=== PATIENT | female | born 1950 | race Caucasian/White ===

== ENCOUNTER 2017-06-07 09:23 | Day surgery (SDC) | payer MEDICARE ==
--- NOTE | 2017-06-07 11:25 | Operative Note ---
Upper GI Endoscopy Procedure date: 06/07/17 Date of : 46 Procedure:Upper GI Endoscopy Esophagogastroduodenoscopy with cold biopsies Indications: Mrs. 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 She has been on Reglan for more than 15 years. She also has been on Prevacid and Tagamet. All of this helped to control her gastroesophageal reflux disease. The patient has had no significant dyspepsia as long as she stays with this and reports no indigestion, heartburn or dyspepsia. She reports no dysphagia. Performing Provider: Mark Radford MD Referring Provider: Wil Camp M.D. Sedation: Fentanyl 100 mg IV/Versed 4 mg IV Procedure: Prior to the procedure, a history and physical exam was performed, and patients medications and allergies were reviewed. The risks and benefits of the procedure and the sedation options and risks were discussed with the patient. All questions were answered and informed consent was obtained. The patient was brought to the procedure room. Patient identification and proposed procedure were verified by the physician and the nurse. The patient was placed in a left lateral decubitus position and the scope was passed under direct vision. Throughout the procedure, the patient's blood pressure, pulse, and oxygen saturations were monitored continuously. The endoscope was introduced through the mouth, and advanced to the second part of duodenum. The upper GI endoscopy was accomplished without difficulty. The patient tolerated the procedure well. Findings: The scope was passed directly into the upper esophagus and advanced to the third portion of the duodenum. The post bulbar duodenum and duodenal bulb were normal with normal mucosa and conniventes. The scope was withdrawn through a normal duodenal bulb and pylorus into the stomach. There was bile reflux with some linear erythema of the antrum and body consistent with mild linear reactive gastritis. The remainder of the antrum, body and fundus of the stomach were grossly normal. Upon retroflexion there was a small 2 cm hiatal hernia. The scope was then withdrawn into the esophagus. There was 2 very short tongues of salmon-colored mucosa with 2 or 3 very small islands of salmon mucosa consistent with very short segment Lora's esophagus. Cold biopsies were obtained to rule out intestinal metaplasia or dysplasia. There was no evidence of reflux esophagitis. The remainder of the esophageal mucosa was normal. Immediate complications: None EBL (ml): 0 Impression: 1. Very short segment Lora's esophagus 2. Nonerosive gastroesophageal reflux disease with mild esophageal dysmotility and very small sliding hiatal hernia 3. Bile reflux with mild linear reactive gastritis Recommendations: I do feel that the patient has functional gastroesophageal reflux disease secondary to duodenal reflux and some dysmotility tests additional treatment options but she is under control with the present regimen (Prevacid, Reglan and Tagamet). at [id number]
[2017-06-07 15:42] VITALS: BP 114/68
== END 2017-06-07 12:15 | disposition home or self-care (01) ==
LOC: SDC 09:23
PROVIDERS: Internal Medicine Gastroenterology
PROC: 0DB58ZX Excision of Esophagus, Via Natural or Artificial Opening Endoscopic, Diagnostic (ICD-10-PCS; principal; 2017-06-07 14:30)
DX: K22.70 Barrett's esophagus without dysplasia (principal); K44.9 Diaphragmatic hernia without obstruction or gangrene; K22.4 Dyskinesia of esophagus; K29.70 Gastritis, unspecified, without bleeding

== ENCOUNTER → 2017-07-28 | Outpatient (CLI) | payer MEDICARE ==
--- NOTE | 2017-07-28 10:20 | RADIOLOGY REPORT PS360 ---
HIP LT 2-3V W/PELVIS IF PERFOR COMPARISON: None HISTORY: Left hip pain TECHNIQUE: AP pelvis and cone-down AP and frog-leg views left hip FINDINGS: There is no significant joint space narrowing of either hip. There is a small ossification or ossicle adjacent to the roof of the right acetabulum. The SI joints and symphysis pubis per normal. There is prominent disc space narrowing with ossific spurring at the L4-5 level lumbar spine. The left femoral head and neck appear intact and the soft tissues about the left hip are normal. There are pelvic calcifications likely phleboliths. IMPRESSION: Grossly negative appearing left hip, the prominent degenerative disc disease at L4-5 level could be a possible etiology of the patient's left hip pain
== END ==
LOC: RAD 09:57
DX: M25.552 Pain in left hip (principal)

== ENCOUNTER → 2017-08-04 | Outpatient (CLI) | payer MEDICARE ==
--- NOTE | 2017-08-04 15:49 | RADIOLOGY REPORT PS360 ---
EXAM: LUMBAR SPINE 5 VIEWS HISTORY: Low back pain DDD ORDERING PHYSICIAN: Wil Camp MD PATIENT AGE: 67 years COMPARISON: None FINDINGS: Normal alignment. No fracture or dislocation. No lytic or blastic change. There is severe degenerative disc disease at L4-L5 with endplate sclerosis and osteophyte formation. There are mild facet arthritic changes at L5-S1. Small calcific densities overlie the left upper quadrant suggesting left nephrolithiasis. A faint 11 mm calcification is present overlying the mid aspect of the left kidney possibly related to an aneurysm. CT abdomen may be of further value. There is mild sclerosis of the right SI joint. IMPRESSION: 1. Severe degenerative disc disease L4-L5 with mild facet arthritic changes at L5-S1. 2. Nephrolithiasis. 3. 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
== END ==
LOC: RAD 12:32
DX: M51.36 Other intervertebral disc degeneration, lumbar region (principal)

== ENCOUNTER → 2017-08-13 | Outpatient (CLI) | payer MEDICARE ==
--- NOTE | 2017-08-13 09:24 | RADIOLOGY REPORT PS360 ---
MRI-L-SPINE W/O, MRI-3D RENDERING/MYELOGRAM HISTORY: LUMBAR DDD left hip and left leg pain 6 months bilateral tingling feet. Patient Age: 67 years: Female Ordering Physician: Wil Camp MD TECHNIQUE: Sagittal STIR, T1, T2, axial T1 and T2. On 1.5T Siemens wide bore MRI. 3-D MR myelogram image set obtained & performed on MRI workstation. Additional sagittal thin section T2 weighted dataset obtained from this latter acquisition as well (---76 CPT) COMPARISON :August 04, 2017 by lumbar spine series. Also January 03, 2013 CT abdomen pelvis FINDINGS Lumbar vertebral bodies with no compression fracture or lesion. L5/S1. Disc spaces well-maintained mild disc bulge. Mild facet hypertrophy. Minor encroachment upon neural foramen bilateral L4/5 marked degenerative disc space narrowing withassociated sclerotic endplate changes anteriorly.... This is long-standing and similar to 2013 CT. Mild posterior disc bulge most evident towards the foramen. Moderate posterior element hypertrophy (facet and ligament flavum hypertrophy indents the posterior thecal sac). Features combine to yield mild narrowing of the central canal: borderline to minor central canal spinal stenosis.. [id number] bilateral foraminal encroachment slightly more evident at left foramen. L3/4. Disc intact scant facet hypertrophy. No foramen widely patent. L2/3 disc intact L1/2 disc intact T12/L1 disc intact T11/12 disc intact 3-D MR myelogram image set demonstrates only some very slight anterior indentation and tapering of the thecal sac at L4/5 on recent was also discussed with Dr. 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 -This was discussed with Dr. Camp prior to this MRI.. 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 Axial slice 16. This small renal artery aneurysm appears unchanged since since December 2012 CT abdomen available in PACS.. However it would benefit from intermittent follow-up CT and/or CTA abdomen, but given its stability since 2012 believe a follow-up CT within the next 9 - 12 months would seem adequate, along with close management of the patient's hypertension.. Might Consider cardiology consult to assist follow-up, particularlyIf patient has significant or refractory hypertension which may prompt a more timely CTA... Typically renal artery aneurysm intervention is >2 cm, but this may dependent on other factors. IMPRESSION 1. Marked degenerative disc space narrowing again seen at L4/5. Mild disc bulge most evident at foramen along with moderate posterior element hypertrophy at this level yield borderline days minor central canal stenosis and mild bilateral foraminal encroachment most evident to the left. 2. L5/S1. Only minimal diffuse disc bulge with mild facet hypertrophy. Mild foraminal encroachment 3. Other disc spaces are fairly well maintained with only very minor findings.. 3. 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 This appears stable since prior CT from December [address] or CTA 9-12 months would be adequate given its smaller size and stability since 2012.
== END ==
LOC: RAD 07:45
DX: M54.42 Lumbago with sciatica, left side (principal); M51.36 Other intervertebral disc degeneration, lumbar region; M12.88 Other specific arthropathies, not elsewhere classified, other specified site

== ENCOUNTER 2017-08-31 10:09 | Day surgery (SDC) | payer MEDICARE ==
[2017-08-31 14:10] VITALS: BP 111/68
== END 2017-08-31 13:15 | disposition home or self-care (01) ==
LOC: SDC 10:09
PROVIDERS: Ophthalmology
PROC: 08RJ3JZ Replacement of Right Lens with Synthetic Substitute, Percutaneous Approach (ICD-10-PCS; principal; 2017-08-31 13:30)
DX: H26.9 Unspecified cataract (principal)
CPT/HCPCS: V2632

== ENCOUNTER 2017-09-14 08:32 | Day surgery (SDC) | payer MEDICARE ==
[2017-09-14 10:43] VITALS: BP 111/71
== END 2017-09-14 10:37 | disposition home or self-care (01) ==
LOC: SDC 08:32
PROVIDERS: Ophthalmology
PROC: 08RK3JZ Replacement of Left Lens with Synthetic Substitute, Percutaneous Approach (ICD-10-PCS; principal; 2017-09-14 10:30)
DX: H26.9 Unspecified cataract (principal)
CPT/HCPCS: V2632